=== PATIENT | male | born 1985 ===

== ENCOUNTER 2018-06-29 12:14 | Inpatient (IN) | payer OTHER ==
[2018-06-29 12:48] VITALS: BMI 27.8
[2018-06-29] MEDS ORDERED: Sodium Chloride 0.9% 1,000 ML IV STA ×3 (13:05→14:05)
[2018-06-29] MEDS ORDERED: Insulin Regular 1 UNITS/0.01 ML ML SC STA (13:05)
[2018-06-29 13:30] LABS: BASO # 0.01 K/mm3 (0.0-2.0); BASO % 0.2 % (0.0-3.0); EOS # 0.1 (0.0-0.7); HEMOGLOBIN 14.7 g/dL (14.0-18.0); LYMPH # 1.8 (1.2-3.4); LYMPH % 38.6 % (22.0-35.0); MEAN CELL VOLUME 94.2 fl (80.0-105.0); MEAN CORPUSCULAR HEMOGLOBIN 33.9 pg (25.0-35.0); MEAN CORPUSCULAR HGB CONC 35.9 g/dl (31.0-37.0); MEAN PLATELET VOLUME 10.2 fl (7.0-11.0); MONO # 0.3 (0.1-0.6); MONO % 6.5 % (1.0-6.0); RBC 4.34 10^6/uL (3.5-6.1); RED CELL DISTRIBUTION WIDTH 12.2 % (11.5-14.5); WHITE BLOOD COUNT 4.6 10^3/uL (4.5-11.0)
[2018-06-29 13:34] LABS: VENOUS BLOOD GAS BASE EXCESS -0.2 mmol/L (0.0-2.0); VENOUS BLOOD GAS PO2 94 mm/Hg (30-55); VENOUS BLOOD PH 7.39 (7.32-7.43)
--- NOTE | 2018-06-29 13:36 | ED PDOC ---
Arrival/HPI - General Chief Complaint: Dizziness/Lightheaded Historian: Patient - History of Present Illness Narrative History of Present Illness (Text): 06/29/18 13:30 Devyn Kaur is a 32 year old male, with a past medical hx of diabetes (diagnosed 1 yr ago, w/ inconsistent use of insulin), who presents to the emergency department complaining of generalized weakness since this morning. Patient notes polyuria and polyphagia. Patient also notes associated dizziness and chest pain. Pt's mother checked blood sugar which read above 500 today. Pt informs infrequently checking his sugar levels. Patient takes 50 units of insulin QD but denies usage this morning. Patient denies fevers, abdominal pain, nausea, vomiting, diarrhea, dysuria, hematuria, or any other complaints. Time/Duration: 4-6 hours Symptom Onset: Sudden Activities at Onset: Light Context: Home Past Medical History - Provider Review Nursing Documentation Reviewed: Yes - Infectious Disease Hx of Infectious Diseases: None - Cardiac Hx Cardiac Disorders: No - Pulmonary Hx Respiratory Disorders: No - Neurological Hx Neurological Disorder: No - HEENT Hx HEENT Disorder: No - Renal Hx Renal Disorder: No - Endocrine/Metabolic Hx Endocrine Disorders: Yes Hx Diabetes Mellitus Type 1: Yes - Hematological/Oncological Hx Blood Disorders: No - Integumentary Hx Dermatological Disorder: No - Musculoskeletal/Rheumatological Hx Musculoskeletal Disorders: No - Gastrointestinal Hx Gastrointestinal Disorders: No - Genitourinary/Gynecological Hx Genitourinary Disorders: No - Psychiatric Hx Psychophysiologic Disorder: No Hx Substance Use: No Family/Social History - Physician Review Nursing Documentation Reviewed: Yes Family/Social History: Unknown Family HX Smoking Status: Current Some Days Smoker Hx Alcohol Use: Yes Frequency of alcohol use: Socially Hx Substance Use: No Allergies/Home Meds Allergies/Adverse Reactions: Allergies No Known Allergies Allergy (Verified 06/29/18 12:48) Review of Systems - Physician Review All systems were reviewed & negative as marked: Yes - Review of Systems Constitutional: Other (generalized weakness). absent: Fevers Cardiovascular: Chest Pain Gastrointestinal: Other (polyphagia). absent: Abdominal Pain, Diarrhea, Nausea, Vomiting Genitourinary Male: Other (polyuria). absent: Dysuria, Hematuria Neurological: Dizziness Physical Exam Vital Signs Reviewed: Yes Vital Signs Temp Pulse Resp BP Pulse Ox 06/29/18 12:48 98.9 F 92 H 18 151/87 H 97 Temperature: Afebrile Blood Pressure: Normal Pulse: Regular Respiratory Rate: Normal Appearance: Positive for: Well-Appearing, Non-Toxic, Comfortable Pain Distress: None Mental Status: Positive for: Alert and Oriented X 3 Finger Stick Blood Glucose: 500 - Systems Exam Head: Present: Atraumatic, Normocephalic Pupils: Present: PERRL Extroacular Muscles: Present: EOMI Conjunctiva: Present: Normal Mouth: Present: Dry Neck: Present: Normal Range of Motion Respiratory/Chest: Present: Clear to Auscultation, Good Air Exchange. No: Respiratory Distress, Accessory Muscle Use, Wheezes, Rales, Rhonchi Cardiovascular: Present: Regular Rate and Rhythm, Normal S1, S2. No: Murmurs, Rub, Gallop Abdomen: Present: Normal Bowel Sounds. No: Tenderness, Distention, Peritoneal Signs, Rebound, Guarding Back: Present: Normal Inspection Upper Extremity: Present: Normal Inspection. No: Cyanosis, Edema Lower Extremity: Present: Normal Inspection. No: Edema Neurological: Present: GCS=15, CN II-XII Intact, Speech Normal Skin: Present: Warm, Dry, Normal Color. No: Rashes Psychiatric: Present: Alert, Oriented x 3, Normal Insight, Normal Concentration Medical Decision Making ED Course and Treatment: 06/29/18 13:38 Impression: Patient is a 32 year old male, with a past medical history of diabetes (diagnosed 1 yr ago and inconsistent with insulin), who presents to the emergency department complaining of generalized weakness since this morning. Plan: -- Labs -- IV Fluids -- Humulin -- Urinalysis -- Reassess and disposition Prior Visits: Notes and results from previous visits were reviewed. Progress Notes: 06/29/18 13:41 ABG reviewed with lactate of 2.1 and glucose of 741. 06/29/18 14:[address] Montiel, who requests for ICU consult. 14:51 Dr. Wren, ICU consult, requests for repeat blood fingerstick prior to starting insulin drip. - RAD Interpretation Radiology Orders: 06/29/18 13:06 CHEST PORTABLE [RAD] Stat - Medication Orders Current Medication Orders: Sodium Chloride (Sodium Chloride 0.9%) 1,000 mls @ 999 mls/hr IV .Q1H1M STA Stop: 06/29/18 14:05 Discontinued Medications Insulin Human Regular (Humulin R) 10 units SC STAT STA Stop: 06/29/18 13:06 - Scribe Statement The provider has reviewed the documentation as recorded by the Scribe Jordon Nielson All medical record entries made by the Scribe were at my direction and personally dictated by me. I have reviewed the chart and agree that the record accurately reflects my personal performance of the history, physical exam, medical decision making, and the department course for this patient. I have also personally directed, reviewed, and agree with the discharge instructions and disposition. Disposition/Present on Arrival - Present on Arrival History of DVT/PE: No History of Uncontrolled Diabetes: No Urinary Catheter: No History of Decub. Ulcer: No History Surgical Site Infection Following: None - Disposition Referrals: Juan Ruiz DO [Primary Care Provider] - Follow up with primary Forms: [employer] ([place]ian)
[2018-06-29 13:46] LABS: URINE BILIRUBIN NEGATIVE (NEGATIVE); URINE BLOOD NEGATIVE (NEGATIVE); URINE GLUCOSE (UA) >=1000 mg/dL (NEGATIVE); URINE LEUKOCYTE ESTERASE NEGATIVE Leu/uL (NEGATIVE); URINE PROTEIN NEGATIVE mg/dL (<30 mg/dL); URINE UROBILINOGEN 0.2 E.U./dL (<1 E.U./dL)
[2018-06-29 13:48] LABS: URINE APPEARANCE CLEAR (CLEAR); URINE COLOR COLORLESS (YELLOW)
[2018-06-29 13:49] LABS: ALB/GLOB RATIO 1.4 (1.1-1.8); ALBUMIN 4.3 g/dL (3.0-4.8); ALT/SGPT 21 U/L (7-56); AST/SGOT 24 U/L (17-59); BLOOD UREA NITROGEN 15 mg/dL (7-21); CALCIUM 9.9 mg/dL (8.4-10.5); GFR NON-AFRICAN AMERICAN > 60
[2018-06-29] MEDS ORDERED: Insulin Regular 100 UNITS in Sodium Chloride 0.9% 99 ML IV PRN (14:03)
--- NOTE | 2018-06-29 14:15 | RAD ---
Date of service: 06/29/2018 HISTORY: shortness of breath COMPARISON: No prior. TECHNIQUE: 1 view obtained. FINDINGS: LUNGS: No active pulmonary disease. PLEURA: No significant pleural effusion identified, no pneumothorax apparent. CARDIOVASCULAR: No aortic atherosclerotic calcification present. Normal cardiac size. No pulmonary vascular congestion. OSSEOUS STRUCTURES: No significant abnormalities. VISUALIZED UPPER ABDOMEN: Normal. OTHER FINDINGS: None. IMPRESSION: No active disease.
[2018-06-29] MEDS ORDERED: Insulin Detemir 100 units/ml Vial (Levemir) SC STA (15:11)
--- NOTE | 2018-06-29 15:23 | CP.PCM.CON ---
History of Present Illness - History of Present Illness History of Present Illness: MICU CONSULT NOTE HPI Patient is 32yo male with PMhx of IDDM, non compliant with meds, last insulin usage 2-3 days ago, on Levemir 50u QAM, and Metformin, presents to the hospital with polyuria, polydipsia. Pt denies fever, chills, cough, palpitations, CORTEZ, dizziness. Endorses chronic chest pain, non radiating without alleviating or a ggravating factors. Pts BMP glucose 718, given Insulin 10u SQ, repeat FS 462. No evidence of acidosis, ketones in UA. PMhx as above PSHx appendectomy FHx NC Social smokes 5cigarettes per day, denies etoh, drug use FHx DM ROS as above Review of Systems - Review of Systems Review of Systems: as per HPI Past Patient History - Infectious Disease Hx of Infectious Diseases: None - Past Social History Smoking Status: Current Some Days Smoker - CARDIAC Hx Cardiac Disorders: No - PULMONARY Hx Respiratory Disorders: No - NEUROLOGICAL Hx Neurological Disorder: No - HEENT Hx HEENT Problems: No - RENAL Hx Chronic Kidney Disease: No - ENDOCRINE/METABOLIC Hx Endocrine Disorders: Yes Hx Diabetes Mellitus Type 1: Yes - HEMATOLOGICAL/ONCOLOGICAL Hx Blood Disorders: No - INTEGUMENTARY Hx Dermatological Problems: No - MUSCULOSKELETAL/RHEUMATOLOGICAL Hx Musculoskeletal Disorders: No - GASTROINTESTINAL Hx Gastrointestinal Disorders: No - GENITOURINARY/GYNECOLOGICAL Hx Genitourinary Disorders: No - PSYCHIATRIC Hx Psychophysiologic Disorder: No Hx Substance Use: No - SURGICAL HISTORY Hx Surgeries: No Meds Allergies/Adverse Reactions: Allergies Allergy/AdvReac Type Severity Reaction Status Date / Time No Known Allergies Allergy Verified 06/29/18 12:48 Physical Exam - Constitutional Appears: Non-toxic, No Acute Distress - Head Exam Head Exam: NORMAL INSPECTION - Eye Exam Eye Exam: Normal appearance - ENT Exam ENT Exam: Mucous Membranes Moist - Neck Exam Neck exam: Positive for: Full Rom - Respiratory Exam Respiratory Exam: Clear to Auscultation Bilateral, NORMAL BREATHING PATTERN - Cardiovascular Exam Cardiovascular Exam: REGULAR RHYTHM, +S1, +S2 - GI/Abdominal Exam GI & Abdominal Exam: Normal Bowel Sounds, Soft - Extremities Exam Extremities exam: Positive for: normal inspection - Neurological Exam Neurological exam: Alert, Oriented x3 - Psychiatric Exam Psychiatric exam: Normal Affect - Skin Skin Exam: Normal Color, Warm Results - Vital Signs Recent Vital Signs: Last Vital Signs Temp 98.9 F 06/29/18 12:48 Pulse 92 H 06/29/18 12:48 Resp 18 06/29/18 12:48 BP 151/87 H 06/29/18 12:48 Pulse Ox 97 06/29/18 12:48 - Labs Result Diagrams: 06/29/18 13:15 06/29/18 13:15 Labs: Laboratory Results - last 24 hr 06/29/18 06/29/18 06/29/18 12:55 13:15 13:15 WBC 4.6 RBC 4.34 Hgb 14.7 Hct 40.9 L MCV 94.2 MCH 33.9 MCHC 35.9 RDW 12.2 Plt Count 204 MPV 10.2 Neut % (Auto) 51.7 Lymph % (Auto) 38.6 H [place] % (Auto) 6.5 H Eos % (Auto) 3.0 Baso % (Auto) 0.2 Lymph # (Auto) 1.8 [place] # (Auto) 0.3 Eos # (Auto) 0.1 Baso # (Auto) 0.01 Absolute Neuts (auto) 2.38 pO2 VBG pH VBG pCO2 VBG HCO3 VBG Total CO2 VBG O2 Sat (Calc) VBG Base Excess VBG Potassium Glucose Lactate FiO2 Crit Value Called To Crit Value Called By Blood Gas Notified Time Sodium 132 Potassium 5.1 H Chloride 95 L Carbon Dioxide 25 Anion Gap 17 BUN 15 Creatinine 0.9 Est GFR ( Amer) > 60 Est GFR (Non-Af Amer) > 60 POC Glucose (mg/dL) > 500 H* Random Glucose 718 H* Calcium 9.9 Magnesium 2.0 Total Bilirubin 0.9 AST 24 ALT 21 Alkaline Phosphatase 65 Total Protein 7.3 Albumin 4.3 Globulin 3.0 Albumin/Globulin Ratio 1.4 Venous Blood Potassium Urine Color Urine Appearance Urine pH Ur Specific [place] Urine Protein Urine Glucose (UA) Urine Ketones Urine Blood Urine Nitrate Urine Bilirubin Urine Urobilinogen Ur Leukocyte Esterase 06/29/18 06/29/18 13:20 13:30 WBC RBC Hgb Hct MCV MCH MCHC RDW Plt Count MPV Neut % (Auto) Lymph % (Auto) [place] % (Auto) Eos % (Auto) Baso % (Auto) Lymph # (Auto) [place] # (Auto) Eos # (Auto) Baso # (Auto) Absolute Neuts (auto) pO2 94 H VBG pH 7.39 VBG pCO2 41.0 VBG HCO3 24.8 VBG Total CO2 26.1 VBG O2 Sat (Calc) 99.2 H VBG Base Excess -0.2 L VBG Potassium 4.9 Glucose 741 H* Lactate 2.1 FiO2 21.0 Crit Value Called To Crit Value Called By [id number] Blood Gas Notified Time 1335 Sodium 129.0 L Potassium Chloride 94.0 L Carbon Dioxide Anion Gap BUN Creatinine Est GFR ( Amer) Est GFR (Non-Af Amer) POC Glucose (mg/dL) Random Glucose Calcium Magnesium Total Bilirubin AST ALT Alkaline Phosphatase Total Protein Albumin Globulin Albumin/Globulin Ratio Venous Blood Potassium 4.9 Urine Color Colorless Urine Appearance Clear Urine pH 6.0 Ur Specific [place] <= 1.005 Urine Protein Negative Urine Glucose (UA) >=1000 Urine Ketones Negative Urine Blood Negative Urine Nitrate Negative Urine Bilirubin Negative Urine Urobilinogen 0.2 Ur Leukocyte Esterase Negative Assessment & Plan - Assessment and Plan (Free Text) Assessment: 32yo male a/w HONK/HSS HONK/HSS Hyperglycemia Uncontrolled IDDM Non compliance Chest pain - currently afebrile, HD stable, comfortable in NAD, clinically stable - Repeat FS 462, NO evidence of DKA, acidosis, metabolic AG, Ketones in UA; does not require insulin drip at this time - clinically dry on exam Recommend: - supp o2 as needed, duonebs PRN - NO ID issues - resume home dose of Levemir, initiate high dose insulin sliding scale - aggressive IVF hydration - diabetic diet, and educaiton - check HgbA1C, TSH - chest pain workup, check EKG, troponin, tele monitoring, CXR - Endo consult - nicotine patch - GI ppx - DVT ppx - Monitor on tele
[2018-06-29 17:34] LABS: VENOUS BLOOD GAS PO2 151 mm/Hg (30-55)
[2018-06-29 19:03] VITALS: O2SAT 97
[2018-06-29] MEDS: Sodium Chloride 0.45% 1,000 ML IV SCH (21:44)
[2018-06-29] MEDS: Insulin Detemir 100 units/ml Vial (Levemir) SC SCH (21:45)
[2018-06-29] MEDS: Insulin Lispro (humaLOG) LOW Coverage SC SCH (21:46)
[2018-06-29] MEDS ORDERED: Insulin Lispro (humaLOG) LOW Coverage SC SCH (22:00)
[2018-06-29] MEDS ORDERED: Pneumococcal 23-Valent Vaccine IM ONE (22:38)
--- NOTE | 2018-06-30 01:18 | CON ---
DATE OF CONSULTATION: 06/29/2018 ENDOCRINOLOGY CONSULTATION ROOM: 265. HISTORY OF PRESENT ILLNESS: This is a 32-year-old male with known history of type 2 insulin-requiring diabetes on a combination of metformin and Levemir therapy, has apparently been poorly compliant with the medications and presents here with marked hyperglycemic accelerations, and is now being referred for diabetic evaluation and management. PAST MEDICAL HISTORY: As mentioned above, history of type 2 insulin-requiring diabetes on a combination of Levemir, taken as 50 units subcu once daily with metformin given as 850 mg b.i.d., history of dyslipidemia. FAMILY HISTORY: Positive for diabetes and hypertension. SOCIAL HISTORY: The patient smokes half a pack a day for some years now and uses alcohol socially, has a very supportive mother and family. REVIEW OF SYSTEMS: Admits to generalized body weakness with progressive bouts of dizziness and lightheadedness, worse on the day of admission. Also admits to easy fatigability and tiredness and hypersomnolence over the last few days prior to admission. Admits to episodic precordial chest pain that resolved spontaneously with occasional shortness of breath, especially on exertion. His oral intake has been variable with nausea, dyspepsia, and vague upper abdominal pains. Admits to marked polyuria, nocturia, and polydipsia. PHYSICAL EXAMINATION: GENERAL: This is an average-built male, in no apparent distress. VITAL SIGNS: Blood pressure of 140/80, pulse of 100 beats per minute, regular, temperature 98, respirations 20, height is 5 feet 11 inches, weight is 200 pounds. HEENT: Head, normocephalic. Eyes anicteric with pink conjunctivae. Fundoscopy not possible at this time. Ears, nose, and throat, otherwise normal. NECK: Supple. Thyroid gland is normal size. No carotid bruits or cervical adenopathy. CARDIOPULMONARY: Some adynamic precordium. S1, S2 are rapid and regular. LUNGS: Clear to auscultation. ABDOMEN: Flat, soft with positive bowel sounds. EXTREMITIES: No peripheral edema. Pulses are +2 bilaterally. LABORATORY DATA: His initial chemistries, BUN of 15, sodium 132, potassium 5.1, chloride 95, CO2 of 25, glucose is 718, creatinine is 0.9, the subsequent glucose levels have ranged from 324 to 462 mg/dL. ASSESSMENT: This is a 32-year-old male with uncontrolled and decompensated type 2 insulin-requiring diabetes, presenting here with hyperosmolar hyperglycemic state and dehydration with spurious hyponatremia and hyperkalemia related to the increased osmotic diuresis thereof. There is a very strong history of noncompliance to his insulin regimen at this time with no recent lab testing and medical followup. PLAN OF MANAGEMENT: We will initiate a more physiologic basal and bolus insulin drug combination to optimize metabolic control. We will add Levemir given as 30 units subcu at bedtime daily to start tonight. We will also modify his coverage scale with a very low-dose algorithm using Humalog insulin as ordered. We will add Humalog given as 10 units subcu t.i.d. before meals to start tomorrow morning as ordered. We will initiate diabetic education and dietary instructions to include insulin self-administration and reinforce home glucose monitoring at this time. We will obtain serial chemistries and supplement accordingly needed. We will also continue the vigorous IV hydration as ordered to replenish the lost fluids and electrolytes accordingly. Ria Reddy MD
[2018-06-30 07:40] LABS: ALB/GLOB RATIO 1.2 (1.1-1.8); ALBUMIN 3.6 g/dL (3.0-4.8); ALT/SGPT 39 U/L (7-56); AST/SGOT 52 U/L (17-59); BLOOD UREA NITROGEN 14 mg/dL (7-21); CALCIUM 8.6 mg/dL (8.4-10.5); GFR NON-AFRICAN AMERICAN > 60; HDL CHOLESTEROL 43 mg/dL (29-60)
[2018-06-30 07:43] LABS: LDL CHOLESTEROL 108 mg/dL (0-129)
[2018-06-30] MEDS: Insulin Lispro (humaLOG) LOW Coverage SC SCH ×3 (08:20→17:31)
[2018-06-30] MEDS: Insulin Lispro 1 UNITS/0.01 ML SC SCH ×3 (08:44→17:35)
[2018-06-30] MEDS: Enoxaparin 40 mg Syringe SC SCH (09:21)
[2018-06-30] MEDS ORDERED: Insulin Detemir 100 units/ml Vial (Levemir) SC SCH ×2 (10:00→22:00)
--- NOTE | 2018-06-30 11:44 | CARD ---
APPROVED REPORT Date of service: 06/29/2018 EKG Measurement Heart [id number] <Conclusion> Normal sinus rhythm Increased R/S ratio in V1, consider early transition or posterior infarct Abnormal ECG
[2018-06-30] MEDS: Sodium Chloride 0.45% 1,000 ML IV SCH ×2 (12:59→15:00)
--- NOTE | 2018-06-30 14:48 | HP ---
DATE OF EXAM: 06/29/2018 MAIN COMPLAINT: The patient has uncontrolled blood sugar, feeling general weakness and weight loss. HISTORY OF PRESENT ILLNESS: The patient is 32-year-old male with history of diabetes, diagnosed yearly and a half ago who is noncompliant with his insulin or oral hypoglycemic. Pills, he has been not taking his medications, who came in with general weakness. He also complained of weight loss, polyuria, polyphagia, dizziness. Denied any chest pain, any fever, or any chills. No nausea or vomiting or diarrhea or any abdominal pain. PAST MEDICAL HISTORY: Diabetes type 2, on insulin once a day 30 units along the acting insulin plus metformin 1000 twice a day. Also the patient has been noncompliant with his medicine. ALLERGY: NO KNOWN ALLERGY. FAMILY HISTORY: Noncontributory. SOCIAL HISTORY: He smokes less than 10 cigarettes a day, but he does drink socially. He does use marijuana on and off. REVIEW OF SYSTEMS: As in the present illness; generalized weakness, polyuria, polydipsia, and polyphagia; otherwise negative. PHYSICAL EXAMINATION: The patient was seen on 06/29/2018. Physical examination noted for; VITAL SIGNS: Temperature 98, heart rate 92, blood pressure 151/87, respiration 18, and saturation 97%. HEAD AND NECK: Normal. No JVD. No thyromegaly. CHEST: Clear bilaterally. CARDIAC: First sound and second sound normal. No murmur, rub, or gallop. ABDOMEN: Soft and nontender. EXTREMITIES: No edema. NEUROLOGIC: Normal. LABORATORY DATA: His laboratory study; white count 4.6, hemoglobin 14.7, hematocrit 40.8, and platelets 204. Chemistry; sodium 132, potassium 5.1, chloride 95, bicarb 25, BUN 15, creatinine 0.9, and blood sugar 718. Calcium 9.9 and magnesium 2. Liver function test is normal. The patient also has the ABG shows pO2 of 94, pH 7.39, pCO2 of 41, and bicarb 24. Urinalysis was negative. IMPRESSION AND PLAN: This is a 32-year-old male complaint of diabetes, came in with polyuria, polydipsia, weight loss, general weakness, consistent with hyperosmolar nonketotic diabetes conditions. We will admit the patient. IV fluids, he already got 2 liters of IV fluids. he got 10 units of regular insulin of Humalog, and he got 30 units of long-acting insulin. We will continue insulin coverage. We will follow up clinically. We will get consult by Endocrine, Dr. Yepez and continue IV fluid. We will add also lisinopril. We will resume his metformin and insulin coverage and his long-acting insulin. We will continue followup on that. The patient need to be followed up carefully clinically as outpatient. The patient will benefit from vaccination from dietary consultations, and we will follow up with the php consultant. Continue current therapy. Juan Alberto Acuna MD
--- NOTE | 2018-06-30 16:23 | PN ---
DATE: 06/30/2018 ENDOCRINOLOGY FOLLOWUP NOTE LOCATION: Room 265. SUBJECTIVE: This is a 32-year-old male with recent uncontrolled type 2 insulin requiring diabetes, presenting with marked hyperglycemic acceleration and is now being follow closely for metabolic management. His glycemic levels are fluctuating and improved as noted overnight. The glucose levels are arranged from 157 to 161 mg/dL. His bedtime glucose was 362 mg/dL. LABORATORY DATA: Chemistry showed BUN of 14, sodium 138, potassium 3.5, chloride 103, CO2 of 25, glucose 175, creatinine 0.9. His hemoglobin A1c is 14.3% as noted. ASSESSMENT: This is a 32-year-old male with undercontrolled and decompensated type 2 insulin requiring diabetes with marked hyperglycemic accelerations and concomitant hyperosmolar hyperglycemic state and dehydration and is now being followed closely for metabolic management. PLAN OF MANAGEMENT: We will continue the modified basal and bolus insulin regimen as given and started today with Humalog given as 10 units three times a day before meals. We will continue the Levemir given as 30 units subcutaneous at bedtime daily as given. We will titrate incrementally as indicated to optimize metabolic control. We will follow and advise accordingly. Ria Reddy MD
[2018-07-01 01:21] VITALS: RESP 20
[2018-07-01] MEDS: Insulin Lispro (humaLOG) LOW Coverage SC SCH ×3 (03:23→11:47)
[2018-07-01] MEDS: Insulin Detemir 100 units/ml Vial (Levemir) SC SCH (03:24)
[2018-07-01 06:17] VITALS: TEMP 97.8
[2018-07-01] MEDS: Insulin Lispro 1 UNITS/0.01 ML SC SCH ×2 (08:15→12:22)
[2018-07-01 09:18] VITALS: BP 131/79
[2018-07-01] MEDS: Enoxaparin 40 mg Syringe SC SCH (09:18)
[2018-07-01 10:04] VITALS: PULSE 68
[2018-07-01 14:07] LABS: C-PEPTIDE 0.44 ng/mL (0.80-3.85)
--- NOTE | 2018-07-01 16:49 | PN ---
DATE: 07/01/2018 ENDO FOLLOWUP NOTE LOCATION: Room 265. SUBJECTIVE: This 32-year-old male with recent uncontrolled type 2 insulin-requiring diabetes, now being followed closely for metabolic management. He presented here with marked hyperglycemic accelerations as noted thereof. His glucose values are fluctuating but improved and the glucose levels today have ranged from 222-268 mg/dL. It was 160 at bedtime last night. His serum C-peptide was reported as 0.44 indicative of very nil or extremely low endogenous reserve pancreatic islet cells, this is really indicative of the patient being insulin dependent at this time. His A1c was 14.8% which is also again elevated and indicative of suboptimal metabolic control of his diabetic condition on just oral hypoglycemic therapy prior to this admission. LABORATORY DATA: His chemistry showed a BUN of 14, sodium 138, potassium 3.5, chloride 103, CO2 of 25, glucose 175 and creatinine 0.9. ASSESSMENT: This is a 32-year-old male initially evaluated to have uncontrolled type 2 insulin-requiring diabetes and actually now was furthered by chemical testing shown that he is actually now insulin dependent with nil endogenous pancreatic reserve as noted from the C-peptide levels. PLAN OF MANAGEMENT: We will continue the modified basal and bolus insulin dose regimen to allow for full dose equilibration and keep him on the Humalog given as 10 units t.i.d. before meals and we will titrate incrementally as his oral intake improves accordingly. We will also continue the basal insulin given as Levemir at 30 units subcutaneous at bedtime daily and this also may be increased as his fasting glucose values are observed accordingly. He will follow with his medical doctor for outpatient medical followup accordingly. We would highly recommend even the initiation of an insulin pump if his insurance company approves as this is a more optimal way of managing especially type 1 diabetics to optimize their metabolic control thereof. Ria Reddy MD
--- NOTE | 2018-07-01 19:47 | PN ---
DATE: 06/30/2018 SUBJECTIVE: The patient is comfortable, no distress. Blood sugar is coming to 200 to 300, is bad, however, is improving. PHYSICAL EXAMINATION VITAL SIGNS: Temperature of 98, heart rate is 69, blood pressure 150/82, and respirations 20. HEAD AND NECK: Normal. No JVD. No thyromegaly. CHEST: Clear bilateral. CARDIAC: First sound and second sound normal. No murmur, rubs, or gallop. ABDOMEN: Soft and nontender. EXTREMITIES: No edema. NEUROLOGIC: Normal. LABORATORY STUDY: Hemoglobin A1c 14.8. His blood sugar is 362 and it came down to 175. Sodium 138, potassium 3.5, chloride 103, bicarb 25, BUN 14, creatinine 0.9. Liver function test is normal. The patient had TSH which shows 3.66. IMPRESSION AND PLAN: 1. Uncontrolled diabetes, hyperosmolar nonketotic diabetes, continue insulin regimen. The patient is getting Levemir 30 units once a day plus 10 units of Humalog before meals, thus low insulin coverage. Continue current therapy. The patient is also getting metformin. Seems improving. Continue IV fluids. Followup clinically. 2. Hypertension. We will add lisinopril. Continue that. He should monitor that as outpatient. 3. Discussed with the patient, should take a cholesterol medication. Should follow up with the Ophthalmology, Podiatry and followup in the office within a week. We will continue to advise the patient education about diabetes and compliance with his medications. Risks of noncompliance including renal failure and diabetic retinopathy was explained to the patient. Juan Alberto Acuna MD
--- NOTE | 2018-07-02 09:05 | DS ---
HISTORY OF PRESENT ILLNESS: The patient is a 32-year-old male admitted with blood sugar of 750, was given IV fluids, insulin, maintained on insulin coverage. Dr. Ria Reddy, Endocrine consulted the patient, and insulin was adjusted. The patient seems doing well. Continue IV fluids. Continue insulin therapy. Lisinopril added and simvastatin added. The patient was advised to follow up in the office on the current regimen. We will discharge the patient home. PHYSICAL EXAMINATION: VITAL SIGNS: On discharge, temperature of 97.8, heart rate of 69, blood pressure of 131/79, and respirations of 20. HEAD AND NECK: Normal. No JVD. No thyromegaly. CHEST: Clear bilaterally. CARDIAC: First sound and second sound normal. ABDOMEN: Soft and nontender. EXTREMITIES: No edema. NEUROLOGIC: Normal. LABORATORY DATA: The patient also has a laboratory; 0.44. The patient also has a 29.6. TSH 3.36, otherwise his chemistry was normal BUN and creatinine; normal H and H. His hemoglobin 14.7 and hematocrit 40.9, just a little bit in the low side. The patient denied any rectal bleeding or any problem related to that. His BUN is 14 and creatinine is 0.9. Blood sugar is 170. DISCHARGE DIAGNOSES: 1. Hyperosmolar nonketotic diabetic condition. 2. Uncontrolled diabetes. 3. Hypertension. 4. Overweight. 5. Hypercholesterolemia. PLAN: Discharge the patient on insulin, metformin, Levemir 30, 10 units of Humalog before meals, lisinopril 2.5 once a day, and also simvastatin 20. The patient advised to follow up in the office within a week. Juan Alberto Acuna MD
== END 2018-07-01 13:51 | disposition home or self-care (01) | DRG 638 ==
LOC: ED 12:14 → ERH 14:51 → 2RNO 17:46
PROVIDERS: ADMIT Internal Medicine; ATTEND Internal Medicine
DX: E11.00 Type 2 diabetes mellitus with hyperosmolarity without nonketotic hyperglycemic-hyperosmolar coma (NKHHC) (principal); E87.1 Hypo-osmolality and hyponatremia; E86.0 Dehydration; E87.5 Hyperkalemia; R63.2 Polyphagia; R35.8 Other polyuria; Z91.14 Patient's other noncompliance with medication regimen; R63.1 Polydipsia; Z79.4 Long term (current) use of insulin; E78.5 Hyperlipidemia, unspecified; F17.210 Nicotine dependence, cigarettes, uncomplicated; E66.3 Overweight; E78.00 Pure hypercholesterolemia, unspecified; F12.90 Cannabis use, unspecified, uncomplicated; G89.29 Other chronic pain; I10 Essential (primary) hypertension; Z91.19 Patient's noncompliance with other medical treatment and regimen; Z90.49 Acquired absence of other specified parts of digestive tract; Z68.29 Body mass index [BMI] 29.0-29.9, adult